=== PATIENT | female | born 1935 | race Caucasian/White ===

== ENCOUNTER → 2020-11-01 | Outpatient (CLI) | payer MEDICARE ==
[~2020-11-01] MED LIST: REGADENOSON 0.4 MG/5 ML SYR IV ONE
== END ==
LOC: NM 08:58
PROVIDERS: ATTEND Internal Medicine
DX: R77.8 Other specified abnormalities of plasma proteins (principal)
CPT/HCPCS: 78452; 93017; A9502; J2785